=== PATIENT | female | born 1955 | race Caucasian/White ===

== ENCOUNTER 2016-06-05 12:36 | Emergency (ER) | payer OTHER ==
[2016-06-05 13:56] VITALS: RESP 17; TEMP 98.2
[2016-06-05 14:13] LABS: BASOPHILS # (AUTO) 0.02 10*3/UL; BASOPHILS % (AUTO) 0.4 % (0-1); EOSINOPHILS % (AUTO) 1.5 % (0-8); HEMATOCRIT 34.9 % (37.0-47.0); HEMOGLOBIN 11.6 g/dL (12.0-16.0); IMM GRAN % (AUTO) 0 % (0-5); IMM GRAN# (AUTO) 0 10*3/UL; LYMPHOCYTES # (AUTO) 1.18 10*3/uL; MEAN CORPUSCULAR HEMOGLOBIN 29.1 PG (27-31); MEAN CORPUSCULAR HGB CONC 33.2 g/dL (33-37); MEAN PLATELET VOLUME 9.6 FL (7.4-12.2); MONOCYTES # (AUTO) 0.59 10*3/UL (0.3-0.8); NEUTROPHILS # (AUTO) 3.49 10*3/UL; NEUTROPHILS % (AUTO) 65.1 % (50-80); RDW COEFFICIENT OF VARIATION 13.6 % (11.5-14.5); RED BLOOD COUNT 3.98 10^6/uL (4.20-5.40); WHITE BLOOD COUNT 5.36 10^3/uL (4.8-10.8)
[2016-06-05 14:14] LABS: PLATELET MORPHOLOGY COMMENT NORMAL MORPHOLOGY (NORM)
[2016-06-05 14:19] LABS: ASPARTATE AMINO TRANSFERASE 35 IU/L (8-39); BILIRUBIN,TOTAL 0.4 mg/dL (0.3-1.2); BLOOD UREA NITROGEN 30 mg/dL (7-22); BUN/CREATININE RATIO 42.85 (6-20); CALCIUM 9.3 mg/dL (8.7-10.7); CHLORIDE 97 meq/L (98-112); CREATININE 0.7 mg/dL (0.50-1.20); EST GLOMERULAR FILTRATION > 60 (>60 ml/min/1.73m(2)); GLUCOSE 92 mg/dL (78-110); POTASSIUM 5.1 meq/L (3.8-5.2); SODIUM 134 meq/L (135-145); TOTAL PROTEIN 7.8 g/dL (6.1-8.0)
--- NOTE | 2016-06-05 23:17 | PDOC ---
General Adult HPI - General Chief Complaint: Accidental Ingestion /Overdose Stated Complaint: TOOK DOUBLE OF HER MEDS Date Seen by Provider: 06/05/16 Time Seen by Provider: 12:55 Source: POSITIVE: Patient, Other (Caregiver) Exam Limitations: POSITIVE: No limitations Nurse's Notes Reviewed & Considered: Yes - History of Present Illness Initial Comment: The patient is a 60-year-old female who lives at [facility]. She has a history of adult-onset diabetes mellitus, hyponatremia and schizophrenia. She accidentally took her evening doses of her medications, consisting of fluoxetine 30 mg, sodium chloride 1 g and Zyprexa 5 mg and metformin 500 mg around noon. Patient's normal medications are metformin 500 mg twice daily, benztropine 0.5 mg in the morning, fluoxetine 30 mg at night, sodium chloride 1 g 3 times daily and Zyprexa 5 mg at night. Patient is very hard of hearing. She denies any symptoms except" being a little tired". No vomiting or diarrhea. No head chest or abdominal pain. Patient is brought to the emergency room by her caregiver. Have you received a tetanus shot in the past 10 years?: Unknown Body Location Affected: REPORTS: Other (As above) Timing: REPORTS: Other (Patient took her at bedtime medications around noon) Duration: 1 hour Quality: REPORTS: Other (Patient denies any pain anywhere) Context: REPORTS: None Modifying Factors: improves with: Nothing Similar Symptoms Previously: No Recent Care Received: REPORTS: Denies Any Prior Injuries Related to Current Complaint?: No - Patient Home Medications Home Medications: Home Medications Olanzapine [Zyprexa] 10 mg PO QHS #30 tab 02/21/15 Metformin HCl 1 tab PO BID #180 tab 07/16/15 Benztropine Mesylate [Cogentin] 0.5 mg PO BID 08/15/15 Fluoxetine HCl [Prozac] 20 mg PO BEDTIME 08/15/15 Losartan Potassium 25 mg PO DAILY #30 tab 02/18/16 Sodium Chloride 1 gm PO TID 06/05/16 - Patient Allergies Allergies/Adverse Reactions: Allergies Allergy/AdvReac Type Severity Reaction Status Date / Time lisinopril Allergy Intermediate cough Verified 06/05/16 13:25 sulfamethoxazole AdvReac Severe "made my Verified 06/05/16 13:25 [From Bactrim DS] head feel funny" trimethoprim AdvReac Severe "made my Verified 06/05/16 13:25 [From Bactrim DS] head feel funny" Past Medical History - heen HEENT History: Other (please comment) Additional HEENT History: WEARS GLASSES, HARD OF HEARING - WEARS AMPLIFIER HEADSET Cardiovascular History: Hypertension Respiratory History: Denies History Gastrointestinal History: Other (please comment) Additional Gastrointestinal History: CONSTIPATION Genitourinary History: Recurrent UTI Endocrine History: Type 2 Diabetes (oral) Musculoskeletal History: Denies History Prosthesis or Implant: No Neurological History: Other (please comment) Additional Neurological History: DEVELPMENTAL DELAYS D/T RECREATIONAL DRUG ABUSE Blood Disorders: Denies History Psychiatric History: Depression, Schizophrenia History of Sexually Transmitted Diseases: No LMP: YEARS AGO Obstetrical History: Delivery Additional Obstetrical History: x1 Cancer History: Denies History In Past Year Been Physically Harmed or Verbally Threatened: No (PER PATIENT) History of MDRO: No History of Other Communicable Diseases: No Tobacco Use: Former Smoker Alcohol Use: Rarely Substance Use Type: Other (please comment) Previous Surgical History: Yes Type / Date of Surgery: x1 Anesthesia Reactions: No Malignant Hyperthermia: No Family History of Malignant Hyperthermia: No Significant Family History: No pertinent family hx Past Medical History Reviewed: Reviewed - No Changes ROS - Limitations ROS Limitations: No Limitations Constitution: REPORTS: Denies Symptoms Cardiovascular: REPORTS: Denies Cardiac Symptoms Respiratory: REPORTS: Denies Resp Symptoms Neurological: REPORTS: Denies Neuro Symptoms Gastrointestinal: REPORTS: Denies GI Symptoms Endocrine: REPORTS: Denies Symptoms Musculoskeletal: REPORTS: Denies MS Symptoms Genitourinary: REPORTS: Denies Symptoms Eyes: REPORTS: Denies Symptoms ENT: REPORTS: Denies Symptoms Skin: REPORTS: Denies Skin Symptoms Lympathic: REPORTS: Denies Lympathic Symptoms Immunologic: POSITIVE: Denies Symptoms Psychiatric: POSITIVE: Denies Psych Symptoms General Adult Exam - General Appearance General Appearance: POSITIVE: Alert, Cooperative, No Acute Distress, No Evidence of Trauma - HEENT HEENT: POSITIVE: Head Inspection Nml, Eyes Inspection Nml, Ears Inspection Nml, Nose Inspection Nml, Oral/Dental Inspect. Nml, Pharynx Inspect. Nml, PERRL, EOMI - Pupils Pupil Size: 3 mm: Bilateral (PERRLA) - Neck Neck: POSITIVE: Normal Inspection, Thyroid Normal - Respiratory Respiratory: POSITIVE: No Respiratory Distress, Breath Sounds Normal, Chest Non- Tender - Cardiovascular Cardiovascular: POSITIVE: Regular Rate & Rhythm, No Murmur, No Gallop, PMI Normal Peripheral Pulses: Radial (R): 2+, Radial (L): 2+ - Abdomen Abdomen: Soft: (All Quadrants), Normal Bowel Sounds: (All Quadrants), Denies Tenderness: (All Quadrants), No Splenomegaly: (All Quadrants), No Hepatomegaly: (All Quadrants), No Guarding: (All Quadrants), No Rebound: (All Quadrants), No Palpable Pulse: (All Quadrants), No Palpabale Mass: (All Quadrants), No Distention: (All Quadrants), No Rigidity: (All Quadrants) - Back Back: POSITIVE: Normal Inspection - Skin Skin: POSITIVE: Normal Color, Warm, Dry, No Rash - Extremities Extremity: Non-Tender: (All Extremities), Normal ROM: (All Extremities), Normal Inspection: (All Extremities) - Neurological / Psychological Neurological: POSITIVE: Oriented X3, glass sander belt Normal As Tested, Motor Normal, Sensation Normal, 5, 6 General Adult Progress - Results Reviewed by me Lab Results Reviewed: Yes Lab Results:: Laboratory Results 06/05/16 Range/Units 14:10 WBC 5.36 (4.8-10.8) 10^3/uL RBC 3.98 L (4.20-5.40) 10^6/uL Hgb 11.6 L (12.0-16.0) g/dL Hct 34.9 L (37.0-47.0) % MCV 87.7 (81-99) FL MCH 29.1 (27-31) PG MCHC 33.2 (33-37) g/dL RDW Std Deviation 42.1 (39-50) fL RDW Coeff of Mora 13.6 (11.5-14.5) % Plt Count 293 (140-350) 10*3/uL MPV 9.6 (7.4-12.2) FL Immature Gran % (Auto) 0 (0-5) % Neut % (Auto) 65.1 (50-80) % Lymph % (Auto) 22.0 (10-50) % [place] % (Auto) 11.0 (5-15) % Eos % (Auto) 1.5 (0-8) % Baso % (Auto) 0.4 (0-1) % Immature Gran # (Auto) 0 10*3/UL Neut # (Auto) 3.49 10*3/UL Lymph # (Auto) 1.18 10*3/uL [place] # (Auto) 0.59 (0.3-0.8) 10*3/UL Eos # (Auto) 0.08 10*3/UL Baso # (Auto) 0.02 10*3/UL WBC Morphology Comment Normal morphology (NORM) Plt Morphology Comment Normal morphology (NORM) RBC Morph Comment Normal morphology (NORM) Sodium 134 L (135-145) meq/L Potassium 5.1 (3.8-5.2) meq/L Chloride 97 L (98-112) meq/L Carbon Dioxide 22 L (23-33) meq/L Anion Gap 15 (5-20) BUN 30 H (7-22) mg/dL Creatinine 0.7 (0.50-1.20) mg/dL Estimated GFR > 60 (>60 ml/min/1.73m(2)) BUN/Creatinine Ratio 42.85 H (6-20) Glucose 92 (78-110) mg/dL Calculated Osmolality 283.0 (267-292) mOsm/kg Calcium 9.3 (8.7-10.7) mg/dL Total Bilirubin 0.4 (0.3-1.2) mg/dL AST 35 (8-39) IU/L ALT 24 (9-52) IU/L Alkaline Phosphatase 55 (38-126) IU/L Total Protein 7.8 (6.1-8.0) g/dL Albumin 4.4 (3.5-4.8) g/dL Globulin 3.4 (2.50-4.10) g/dL Albumin/Globulin Ratio 1.20 L (1.3-2.0) mg/g - Patient's Progress Pain Medication Addressed: POSITIVE: Not Applicable School/Work Release Addressed: POSITIVE: Not Applicable Re-Examine Time: 14:55 Status: POSITIVE: Unchanged, Re-Examined Antibiotics Given: No - Consult Counseled: POSITIVE: Patient, RE: Lab Results, RE: DX, RE: Need for F/U, Other ( Caregiver) Patient Care Time - Estimated PCT Patient Care Time (In Minutes): 33 Vital Signs - VS Reviewed Vital Signs Reviewed: Yes Discharge Clinical Impression: Drug ingestion, accidental Discharge Disposition: Discharged to Home Condition: Good Patient Instructions Given at Discharge: Adult Overdose (ED) Additional Instructions: I do not believe that you have or will sustain any adverse reactions due to your accidental ingestion of this evening's medications early. Begin taking her medications as directed beginning with your morning doses. Return here anytime if condition worsens. Follow-up with your primary care provider. Follow Up With: FELIPE GALDAMEZ [Primary Care Provider] - (Instructions as above. Return anytime if condition worsens. Follow-up with your primary care provider.)
== END 2016-06-05 15:02 | disposition home or self-care (01) ==
LOC: ER 12:36
DX: T50.995A Adverse effect of other drugs, medicaments and biological substances, initial encounter (principal); E11.9 Type 2 diabetes mellitus without complications; F32.9 Major depressive disorder, single episode, unspecified; F20.9 Schizophrenia, unspecified; Z87.440 Personal history of urinary (tract) infections
CPT/HCPCS: 80053; 85025; 99282